=== PATIENT | female | born 1975 | race Caucasian/White ===

== ENCOUNTER → 2023-02-05 | Outpatient (REF) | payer MEDICAID, SELFPAY ==
[2023-02-05 08:17] LABS: Hematocrit 29.3 % (37-47); Hemoglobin 8.8 g/dL (12.0-15.0); Mean Corpuscular Hgb 29.1 pg (27.0-32.0); Mean Platelet Vol. 9.6 fl (6.2-12.0); POSITIVE COUNT YES; POSITIVE MORPHOLOGY YES; Platelet Count 489 K/mm3 (150-450); RBC Distribution Width CV 16.2 % (11.6-14.6); RBC Distribution Width SD 56.9 fl (35.1-43.9); Red Blood Count 3.02 M/mm3 (4.2-5.4); White Blood Count 10.1 K/mm3 (4.4-11.0)
[2023-02-05 08:19] LABS: Differential Indicated MANUAL DIFF
[2023-02-05 08:27] LABS: Anion Gap 5 (5-15); BUN 7 mg/dL (7-18); BUN/Creat Ratio 7.6 RATIO (10-20); Calcium,Total 8.3 mg/dL (8.5-10.1); Chloride 109 mmol/L (98-107); Cholesterol 119 mg/dL (200); Creatinine, Serum 0.92 mg/dL (0.55-1.02); EST Glomerular Filtration Rate 70 mL/min (>60); Est Glom Filt Rate - Afr Amer 84 mL/min (>60); Glucose 93 mg/dL (74-106); High Density Lipoprotein 28 mg/dL; Magnesium 2.1 mg/dL (1.6-2.6); Potassium 3.7 mmol/L (3.5-5.1); Sodium Level 143 mmol/L (136-145); Triglycerides 241 mg/dL; Very Low Density Lipoprotein 48 mg/dL (5-40)
[2023-02-05 08:35] LABS: Eosinophil 3 % (0-5); Lymphocyte 20 % (19-41); Metamyelocyte 2 % (0-1); Monocyte 9 % (0-10); Neutrophil-Band 2 % (0-5); Neutrophil-Segmented 64 % (47-70); Total Cells Counted 100 (MANUAL DIFF)
[2023-02-05 08:36] LABS: Absolute Neutrophil Count 6.9 X10^3/uL (2.0-7.7); Neutrophil # 6.87 X10^3/uL (2.7-7.7)
[2023-02-05 08:37] LABS: Absolute Lymphocyte Count 2.02 X10^3/uL (0.83-4.51); Lymphocyte # 2.02 X10^3/ul (0.83-4.51)
[2023-02-05 08:40] LABS: Platelet Estimate MOD INC (ADEQ)
[2023-02-05 08:42] LABS: Polychromasia RARE; Red Cell Morphology N CYTIC NORMAL (NORM C&C)
[2023-02-05 09:31] LABS: Hemoglobin A1c 5.5 % (3.8-5.6)
[2023-02-05 14:08] LABS: Pathologist Review Reviewed
== END | disposition home or self-care (01) ==
LOC: OLS.SW 06:30
PROVIDERS: PCP Family Medicine; Visit Provider Internal Medicine
DX: Z02.2 Encounter for examination for admission to residential institution (principal); J44.9 Chronic obstructive pulmonary disease, unspecified; E11.9 Type 2 diabetes mellitus without complications; E78.5 Hyperlipidemia, unspecified
CPT/HCPCS: 80048; 80061; 83036; 83735; 85025

== ENCOUNTER → 2023-02-10 | Outpatient (REF) | payer MEDICAID, SELFPAY ==
[2023-02-10 09:09] LABS: Hematocrit 30.8 % (37-47); Hemoglobin 9.4 g/dL (12.0-15.0); Mean Corp Hgb Conc 30.5 g/dL (32-36); Mean Corpuscular Volume 98.4 fL (81-99); Mean Platelet Vol. 9.4 fl (6.2-12.0); Platelet Count 357 K/mm3 (150-450); RBC Distribution Width CV 16.9 % (11.6-14.6); RBC Distribution Width SD 59.1 fl (35.1-43.9); Red Blood Count 3.13 M/mm3 (4.2-5.4); White Blood Count 6.6 K/mm3 (4.4-11.0)
[2023-02-10 09:31] LABS: Anion Gap 5 (5-15); BUN 7 mg/dL (7-18); Calcium,Total 8.7 mg/dL (8.5-10.1); Chloride 111 mmol/L (98-107); Creatinine, Serum 1.17 mg/dL (0.55-1.02); EST Glomerular Filtration Rate 53 mL/min (>60); Est Glom Filt Rate - Afr Amer 64 mL/min (>60); Glucose 81 mg/dL (74-106); Potassium 3.8 mmol/L (3.5-5.1); Sodium Level 143 mmol/L (136-145)
== END | disposition home or self-care (01) ==
LOC: OLS.SW 05:20
PROVIDERS: PCP Family Medicine; Visit Provider Internal Medicine
DX: I10 Essential (primary) hypertension (principal); E11.9 Type 2 diabetes mellitus without complications; D64.9 Anemia, unspecified
CPT/HCPCS: 36415; 80048; 85027

== ENCOUNTER → 2023-02-12 | Outpatient (REF) | payer MEDICAID, SELFPAY ==
[2023-02-12 07:02] LABS: Absolute Lymphocyte Count 1.86 X10^3/uL (0.83-4.51); Absolute Neutrophil Count 2.3 X10^3/uL (2.0-7.7); Basophil# 0.07 X10^3/uL; Basophil% 1.4 % (0-1); Eosinophil# 0.17 X10^3/uL; Eosinophils% 3.4 % (0-5); Hematocrit 31.5 % (37-47); Hemoglobin 9.6 g/dL (12.0-15.0); Lymphocyte # 1.86 X10^3/ul (0.83-4.51); Lymphocyte % 37.2 % (19-41); Mean Corp Hgb Conc 30.5 g/dL (32-36); Mean Corpuscular Hgb 29.8 pg (27.0-32.0); Mean Corpuscular Volume 97.8 fL (81-99); Mean Platelet Vol. 9.3 fl (6.2-12.0); Monocyte# 0.53 X10^3/uL; Monocyte% 10.6 % (0-10); NRBC Flagged by Analyzer 0 % (0-5); Neutrophil # 2.32 X10^3/uL (2.7-7.7); Neutrophil % 46.4 % (47-70); Platelet Count 289 K/mm3 (150-450); RBC Distribution Width CV 16.7 % (11.6-14.6); RBC Distribution Width SD 59.3 fl (35.1-43.9); Red Blood Count 3.22 M/mm3 (4.2-5.4)
[2023-02-12 07:12] LABS: Anion Gap 6 (5-15); BUN 8 mg/dL (7-18); BUN/Creat Ratio 6.7 RATIO (10-20); Calcium,Total 8.8 mg/dL (8.5-10.1); Chloride 111 mmol/L (98-107); Creatinine, Serum 1.19 mg/dL (0.55-1.02); EST Glomerular Filtration Rate 52 mL/min (>60); Est Glom Filt Rate - Afr Amer 63 mL/min (>60); Glucose 84 mg/dL (74-106); Potassium 3.7 mmol/L (3.5-5.1); Sodium Level 143 mmol/L (136-145)
== END | disposition home or self-care (01) ==
LOC: OLS.SW 05:46
PROVIDERS: PCP Family Medicine; Visit Provider Internal Medicine
DX: E11.9 Type 2 diabetes mellitus without complications (principal); T81.49XD Infection following a procedure, other surgical site, subsequent encounter
CPT/HCPCS: 36415; 80048; 85025

== ENCOUNTER → 2023-02-15 | Outpatient (REF) | payer MEDICAID, SELFPAY ==
[2023-02-15 08:30] LABS: Hemoglobin A1c 5.2 % (3.8-5.6)
[2023-02-15 08:36] LABS: Calcium,Total 8.9 mg/dL (8.5-10.1); Cholesterol 149 mg/dL (200); Ferritin 244 ng/mL (8-252); High Density Lipoprotein 37 mg/dL; Iron 59 ug/dL (50-170); T4 Total, Thyroxin 9.9 ug/dL (4.8-13.9); Thyroid Stim Hormone (TSH) 3.23 uIU/mL (0.358-3.74); Triglycerides 327 mg/dL; Very Low Density Lipoprotein 65 mg/dL (5-40)
[2023-02-15 09:02] LABS: T3 Total - Triiodothyronine 1.51 ng/mL (0.6-1.81); Vitamin B12 541 pg/mL (211-911); Vitamin D,25 Hydroxy 39.5 ng/mL
[2023-02-19 06:08] LABS: Zinc, Plasma or Serum 101 ug/dL (44-115)
== END | disposition home or self-care (01) ==
LOC: OLS.SW 05:00
PROVIDERS: PCP Family Medicine; Visit Provider Internal Medicine
DX: E55.9 Vitamin D deficiency, unspecified (principal); Z98.84 Bariatric surgery status
CPT/HCPCS: 36415; 80061; 82306; 82310; 82607; 82728; 83036; 83540; 84436; 84443; 84480; 84630